=== PATIENT | male | born 1990 | race African-American/Black ===

== ENCOUNTER 2018-02-23 08:30 | Inpatient (IN) | payer OTHER ==
[~2018-02-23] VITALS: Ht 182.9 cm; Wt 78.7 kg
[2018-02-23 08:30] VITALS: BP 127/68
[~2018-02-23 08:30] MED LIST: ACET-8331 GT; ACET-8386 GT; ASCO500T45 GT; DOCU-299 GT; FAMO-90 GT; LACT1POW GT; LEVE1000 PO; MERO1PDS2 IV; METO25TA GT; MULT5SOL7 GT; ONDA4TAB GT; VANC750S IV; [UNRECOGNIZED DRUG - CODE] PO
--- NOTE | 2018-02-23 08:30 | NUR ---
3744 PT BIBA ALS TO ER BED 10
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
--- NOTE | 2018-02-23 08:51 | NUR ---
RCV'D PT ON MECHANICAL VENTILATION WITH CHARTED SETTINGS. PT IS TRACHED WITH PORTEX 8. NO SOB OR DISTRESS NOTED. CLEAR BILAT BREATH SOUNDS. VENT IS CONNECTED TO RED OUTLET. ALARMS ARE AUDIBLE. WILL CONTINUE TO MONITOR.
[2018-02-23 09:37] LABS: BASOPHILS % (AUTO) 0.2 % (0.0-2.0); EOSINOPHILS % (AUTO) 0.6 % (0.0-4.0); HEMATOCRIT 38.1 % (36-52); HEMOGLOBIN 12.7 g/dL (12.0-18.0); LYMPHOCYTES # (AUTO) 2.8 K/uL (2.0-11.5); LYMPHOCYTES % (AUTO) 35.8 % (20.5-51.1); MEAN CORPUSCULAR HEMOGLOBIN 31 pg (27-31); MEAN CORPUSCULAR HGB CONC 33 g/dL (33-37); MEAN CORPUSCULAR VOLUME 92.4 fL (80-94); MONOCYTES # (AUTO) 0.6 K/uL (0.8-1.0); MONOCYTES % (AUTO) 7.2 % (1.7-9.3); NEUTROPHILS # (AUTO) 4.4 K/uL (1.8-7.7); NEUTROPHILS % (AUTO) 56.2 % (42.2-75.2); PLATELET COUNT (AUTO) 193 K/uL (140-450); RED BLOOD CELL COUNT(AUTO) 4.12 MIL/uL (4.20-6.10); RED CELL DISTRIBUTION WIDTH 15.7 % (11.6-13.7); WHITE BLOOD COUNT (AUTO) 7.9 K/uL (4.8-10.8)
[2018-02-23 09:51] LABS: ANION GAP 10.5 (8-16); CARBON DIOXIDE 27.4 mmol/L (21-32); CREATININE 1.1 mg/dL (0.7-1.3); POTASSIUM 3.9 mmol/L (3.5-5.1)
[2018-02-23] MEDS ORDERED: cefTRIAXone 1,000 MG VIAL ONE (09:51)
[2018-02-23 09:52] LABS: PROTHROMBIN TIME 11.3 secs (10.8-13.4)
[2018-02-23 09:55] LABS: APPEARANCE,URINE CLEAR (CLEAR); BILIRUBIN,URINE NEGATIVE (NEGATIVE); BLOOD, URINE NEGATIVE (NEGATIVE); COLOR,URINE YELLOW (YELLOW); LEUKOCYTE ESTERASE ,URINE 1+ (NEGATIVE); NITRITE, URINE NEGATIVE (NEGATIVE); UGLUCOSE NEGATIVE (NEGATIVE)
[2018-02-23 09:57] LABS: ALBUMIN 4.6 g/dL (3.4-5.0); TOTAL BILIRUBIN 0.3 mg/dL (0.0-1.0)
--- NOTE | 2018-02-23 10:00 | NUR ---
PT STRAIGHT CATH, URINE SAMPLE SEND TO THE LAB, DIP STICK RESULTS GIVEN TO DR CROWLEY, PT IN NO ACUTE DISTRESS AT THIS TIME, ON VENT, VSS, WILL CONTINUE TO MONITOR.
[2018-02-23 10:14] LABS: RBC,URINE NONE SEEN /HPF (0-5)
[2018-02-23] MEDS ORDERED: ONDANSETRON 4 MG/2 ML VIAL IVP PRN (10:35)
[2018-02-23] MEDS ORDERED: HYDROcodone/APAP 5/325 MG 1 TAB TAB PO PRN (10:35)
[2018-02-23] MEDS ORDERED: HYDROcodone/APAP 5/325 MG 1 TAB TAB GT PRN (10:35)
[2018-02-23] MEDS ORDERED: LORazepam 2 MG/ML VIAL IVP PRN (10:35)
[2018-02-23] MEDS ORDERED: NON-FORMULARY ITEM (Acetaminophen 650 MG) GT SCH (10:35)
--- NOTE | 2018-02-23 12:00 | NUR ---
Patient will be admitted to care of Dr Nelson admited to tele to room 108b. Belongings list completed. Report to JEANA Bryan.
[2018-02-23 12:05] VITALS: BP 122/81
--- NOTE | 2018-02-23 12:05 | NUR ---
RECEIVED PT REPORT FROM ER NURSE AT BEDSIDE. PT IS AWAKE, OX0. HX CVA (TBI) TRACH TO VENT. COMING FROM [facility]. CC: FEVER AND TACHYCARDIA. DX UTI. IV NOTED TO LEFT WRIST 20G. INTACT AND ASYMPTOMATIC. SKIN INTACT, NO ACTIVE WOUND. OLD SCAR AROUND ANUS AND ON LEFT KNEE. VENT SETTING: FIO2 28, VT450, PEEP6, RR12. O2 SAT 98%. VITALS TAKEN, MRSA SCREENING DONE. BED IN LOWEST POSITION. FALLS PRECAUTIONS IN PLACE. CALL LIGHT WITHIN REACH. Addendum: 02/23/18 at 1813 by Irvin Austin RN BUE, BLE RIGID. ABNORMAL FLEXION BUE.
[2018-02-23] MEDS ORDERED: LACTOBACILLUS ACIDOPHILUS GT SCH (13:00)
[2018-02-23] MEDS: ASCORBIC ACID 500 MG/5 ML ORASYR GT SCH ×3 (13:10→20:25)
--- NOTE | 2018-02-23 13:10 | NUR ---
G TUBE RESIDUAL 0ML. SCHEDULED MED GIVEN VIA G TUBE BY GRAVITY, FLUSHED WITH 30ML H2O. G TUBE IS PATENT.
[2018-02-23] MEDS: ALBUTEROL 0.083% 2.5 MG/3 ML NEBU IH SCH ×2 (13:26→19:09)
--- NOTE | 2018-02-23 13:38 | NUR ---
PT ON AC 12, VT 450, PEEP 6 AND FIO2 28%. VENT CHECK COMPLETED PT NOT IN ANY DISTRESS AT THIS TIME. PT SUCTIONED OBTAINED SMALL AMOUNT OF THICK WHITE SECRETIONS, AIRWAY IS PATENT AND TRACH IS SECURE.
--- NOTE | 2018-02-23 14:20 | NUR ---
CALLED JUANITA CASTILLO FOR PNA VAC STATUS AND G TUBE FEEDING SETTING. CALLED PT'S FATHER, MADE HIM AWARE PT IS ADMITTED TO THE HOSP.
--- NOTE | 2018-02-23 14:40 | NUR ---
CALLED DR BORGES. YEIMI TO RESUME PREVIOUS G TUBE FEEDING WHICH PT HAD IN HIS [facility]. ORDERED NS 100ML PER HOUR.
[2018-02-23] MEDS: NACL 0.9% 1,000 ML IV SCH ×2 (14:50→20:24)
--- NOTE | 2018-02-23 15:00 | NUR ---
SPOKE WITH CENTRIFUGAL WAX MOLDER ABOUT CONVERTING OSMOLITE 1.2 TO 1.5
--- NOTE | 2018-02-23 15:16 | NUR ---
DISCUSSED RECOMMENDATIONS WITH NURSE TO CHANGE TF ORDER TO OSMOLITE 1.5 @ 55ML/H WITH 160 ML H2O FLUSH Q6H. THIS WILL PROVIDE 1980 KCAL, 83 GM PRO, AND 1965 ML FLUID. [address]
[2018-02-23 16:00] VITALS: BP 120/54
--- NOTE | 2018-02-23 17:00 | NUR ---
SMALL BMX1, GREENISH BLACK PASTE LIKE STOOL. PT WAS CLEANED AND REPOSITIONED.
--- NOTE | 2018-02-23 17:09 | NUR ---
VENT ALARMS REMAIN ON AND FUNCTIONING. PT IS NOT SOB AND NOT IN RESPIRATORY DISTRESS AT THIS TIME. TRACH REMAINS SECURE WITH PATENT AIRWAY.
--- NOTE | 2018-02-23 17:35 | NUR ---
CALLED [facility] FOR OSMOLITE FORMULA.
--- NOTE | 2018-02-23 18:05 | NUR ---
CALLED [employer] FOR OSMOLITE, WAITING FOR DELIVERY.
--- NOTE | 2018-02-23 18:30 | NUR ---
G TUBE RESIDUAL 0ML. TUBE FEEDING STARTED. OSMOLITE 1.5, 55ML/HR, H2O FLUSH 200ML Q6H.
[2018-02-23 19:12] VITALS: BP 107/63
--- NOTE | 2018-02-23 19:20 | NUR ---
ENDORSE PT TO MASTER BARBER. PT IN STALE CONDITION.
--- NOTE | 2018-02-23 19:21 | NUR ---
PATIENT REPORT RECEIVED FROM MORNING NURSE AT BEDSIDE. PT IS AWAKE, NONVERBAL. TRACH TO VENT. NO S/SX OF DISTRESS NOTED. FLACC 0. IV SITE NOTED ON LEFT WRIST, IV FLUID INFUSING WELL. GTUBE IN PLACE WITH GTUBE FEEDING CURRENTLY RUNNING AT 55ML/HR. SKIN IS INTACT. SAFETY AND SEIZURE PRECAUTIONS IN PLACE. BED IN LOWEST POSITION, SIDE RAILS UP AND CALL LIGHT WITHIN REACH. WILL CONTINUE TO MONITOR
--- NOTE | 2018-02-23 19:35 | NUR ---
PATIENT'S FAMILY MEMBER IS AT BEDSIDE. UPDATED HER ON PATIENT'S CONDITION.
[2018-02-23] MEDS: FAMOTIDINE 20 MG TAB GT SCH (20:25)
[2018-02-23] MEDS: levETIRAcetam 100 MG/ML ORASYR GT SCH (20:25)
--- NOTE | 2018-02-23 20:30 | NUR ---
GTUBE RESIDUAL CHECKED. NO RESIDUAL NOTED. MEDICATION ADMINISTERED ORDERED. PATIENT TOLERATED WELL. WILL CONTINUE TO MONITOR
[2018-02-23] MEDS: DOCUSATE 100 MG/10 ML UDC GT SCH (20:43)
--- NOTE | 2018-02-23 20:44 | NUR ---
HELD COLACE. PER MORNING NURSE. PATIENT HAD A BOWEL MOVEMENT WHEN HE WAS TRANSFERRED TO THE FLOOR AND ANOTHER TIME DURING THE SHIFT
[2018-02-23 20:49] VITALS: BP 107/63
--- NOTE | 2018-02-23 21:00 | NUR ---
PATIENT HAD A BOWEL MOVEMENT AND VOIDED IN BED. PERICARE DONE. CHUCKS CHANGED. PATIENT REPOSITIONED FOR COMFORT. PATIENT TOLERATED WELL. WILL CONTINUE TO MONITOR
--- NOTE | 2018-02-23 22:40 | NUR ---
PATIENT SEEN BY DR. BORGES. UPDATED HIM ON PATIENT'S CONDITION
[2018-02-24] VITALS: BP 107/44
[2018-02-24] MEDS: ALBUTEROL 0.083% 2.5 MG/3 ML NEBU IH SCH ×4 (01:17→19:11)
--- NOTE | 2018-02-24 02:00 | NUR ---
PATIENT HAD A BOWEL MOVEMENT AND VOIDED IN BED. PERICARE DONE. CHUCKS CHANGED. PATIENT REPOSITIONED FOR COMFORT. PATIENT TOLERATED WELL. WILL CONTINUE TO MONITOR
[2018-02-24] MEDS: NACL 0.9% 1,000 ML IV SCH ×2 (03:33→20:19)
[2018-02-24 04:00] VITALS: BP 100/56
--- NOTE | 2018-02-24 04:00 | NUR ---
PATIENT REPOSITIONED FOR COMFORT. PATIENT TOLERATED WELL. WILL CONTINUE TO MONITOR
[2018-02-24] MEDS: ACETAMINOPHEN 650 MG/20.3 ML UDC GT PRN ×2 (04:29→21:20)
--- NOTE | 2018-02-24 06:38 | NUR ---
PATIENT HAS BEEN SCREENED AND CATEGORIZED HIGH NUTRITION RISK. PATIENT WILL BE SEEN WITHIN 1-2 DAYS OF ADMISSION. 02/24/18-02/25/18 AUGIE RHODES MS, RDN
--- NOTE | 2018-02-24 07:15 | NUR ---
PATIENT REPORT GIVEN TO MORNING NURSE AT BEDSIDE FOR CONTINUITY OF CARE. PATIENT IS IN STABLE CONDITION
--- NOTE | 2018-02-24 07:16 | NUR ---
RECEIVED REPORT FROM BUILDING RIGGER RN. PATIENT IS NONVERBAL, HAS EYES OPEN WITH NO SIGNS AND SYMPTOMS OF ACUTE DISTRESS NOTED AT THIS TIME. HAS IV TO THE LEFT WRIST 20G, INFUSING NS AT 100 ML/HR. SITE IS CLEAN, DRY, PATENT AND INTACT. PATIENT IS TRACH TO VENT. HAS G-TUBE WITH FEEDING RUNNING AT 55 ML/HR. BED IN LOWEST POSITION, SIDE RAILS UP X2 WITH SEIZURE PRECAUTION, CALL LIGHT WITHIN REACH. WILL CONTINUE TO MONITOR.
--- NOTE | 2018-02-24 07:34 | NUR ---
RECEIVED TRACH PT WITH A PORTEX 8 TRACH ON VENT. SETTINGS AC 12, VT 450, PEEP 6 AND FIO2 28%. PT SUCTIONED OBTAINED SCANT AMOUNT OF THICK WHITE SECRETIONS, AIRWAY IS PATENT AND TRACH IS SECURE. PT IS AWAKE BUT NOT ALERT, PT IS NOT SOB AND NOT IN RESPIRATORY DISTRESS. VENT ALARMS ARE ON AND FUNCTIONING. WILL CONTINUE TO MONITOR.
[2018-02-24 07:42] LABS: BASOPHILS % (AUTO) 0.2 % (0.0-2.0); EOSINOPHILS % (AUTO) 0.9 % (0.0-4.0); HEMATOCRIT 35.3 % (36-52); HEMOGLOBIN 11.7 g/dL (12.0-18.0); LYMPHOCYTES # (AUTO) 1.9 K/uL (2.0-11.5); LYMPHOCYTES % (AUTO) 34.5 % (20.5-51.1); MEAN CORPUSCULAR HEMOGLOBIN 31 pg (27-31); MEAN CORPUSCULAR HGB CONC 33 g/dL (33-37); MEAN CORPUSCULAR VOLUME 92.4 fL (80-94); MONOCYTES # (AUTO) 0.6 K/uL (0.8-1.0); MONOCYTES % (AUTO) 10.4 % (1.7-9.3); PLATELET COUNT (AUTO) 173 K/uL (140-450); RED BLOOD CELL COUNT(AUTO) 3.82 MIL/uL (4.20-6.10); WHITE BLOOD COUNT (AUTO) 5.5 K/uL (4.8-10.8)
[2018-02-24 08:00] VITALS: BP 109/65
[2018-02-24 08:09] LABS: ALBUMIN 4.1 g/dL (3.4-5.0); ANION GAP 12.2 (8-16); CARBON DIOXIDE 27.7 mmol/L (21-32); CREATININE 1.1 mg/dL (0.7-1.3); POTASSIUM 3.9 mmol/L (3.5-5.1); TOTAL BILIRUBIN 0.2 mg/dL (0.0-1.0)
[2018-02-24] MEDS: DOCUSATE 100 MG/10 ML UDC GT SCH ×2 (09:25→20:13)
[2018-02-24] MEDS: ASCORBIC ACID 500 MG/5 ML ORASYR GT SCH ×4 (09:25→20:13)
[2018-02-24] MEDS: FAMOTIDINE 20 MG TAB GT SCH ×2 (09:26→20:13)
[2018-02-24] MEDS: LACTOBACILLUS RHAMNOSUS GG 1 EACH CAP GT SCH (09:27)
[2018-02-24] MEDS: ENOXAPARIN 40 MG/0.4 ML SYR SUBQ SCH (09:34)
[2018-02-24] MEDS: levETIRAcetam 100 MG/ML ORASYR GT SCH ×2 (09:35→20:13)
--- NOTE | 2018-02-24 10:29 | NUR ---
02/24/18 RD INITIAL ASSESSMENT COMPLETED PLEASE REFER TO NUTRITION ASSESSMENT UNDER CARE ACTIVITY FOR ESTIMATED NUTRITIONAL NEEDS. RD RECOMMENDATIONS: 1. CONTINUE ON OSMOLITE 1.5 AT 55 ML/HR TOLERATED. 2. RD WILL F/U 2-3 DAYS; HIGH RISK. AUGIE RHODES MS, RDN
--- NOTE | 2018-02-24 11:59 | NUR ---
PT SUCTIONED OBTAINED SMALL AMOUNT OF THICK WHITE SECRETIONS, AIRWAY IS PATENT AND TRACH REMAINS SECURE. WILL CONTINUE TO MONITOR.
[2018-02-24 12:00] VITALS: BP 152/58
[2018-02-24] MEDS ORDERED: HYDRAGUARD CREAM TP ONE (15:05)
--- NOTE | 2018-02-24 15:40 | NUR ---
CONDOM CATH HAS BEEN APPLIED TO PATIENT. HE TOLERATED WELL.
[2018-02-24] MEDS ORDERED: VANCOMYCIN PER PHARMACY MC PRN (15:45)
[2018-02-24 16:00] VITALS: BP 102/53
--- NOTE | 2018-02-24 16:43 | NUR ---
PT ASLEEP AT THIS TIME. PT NOT SOB AND NOT IN RESPIRATORY DISTRESS. SUCTION NOT INDICATED AT THIS TIME. TRACH REMAINS SECURE WITH A PATENT AIRWAY. VENT ALARMS REMAIN ON AND FUNCTIONING.
[2018-02-24] MEDS: PIPER/TAZO 3.375GM/D5W PREMIX 50 ML IV SCH ×2 (17:12→23:54)
[2018-02-24] MEDS: VANCOMYCIN 1GM/DEXT 5% PREMIX 200 ML IV SCH (18:07)
--- NOTE | 2018-02-24 19:20 | NUR ---
ENDORSED PATIENT TO COMPLEX CASE MANAGER RN FOR CONTINUITY OF CARE. PATIENT IN STABLE CONDITION.
--- NOTE | 2018-02-24 19:30 | NUR ---
RECEIVED PT AWAKE, APHASIC, WITH TRACH TO VENT AT 28% FI02, SAT-96% ON CONTINUOUS PULSE OX, VITAL SIGNS STABLE, IVF INFUSING WELL VIA LEFT AC, G-TUBE FEEDING INFUSING WELL AT 55ML/H, HOB ELEVATED AT ALL TIMES, THEA ARMS CONTRACTED, CONDOM CATH IN PLACE DRAINING CLEAR YELLOW OUTPUT, MAINTAIN ON SEIZURE PRECAUTION WITH SIDE RAILS UP AND PADDED, SCD'S IN PLACE, WILL REPOSITION Q2H AND OFFLOAD PRESSURE AREAS, CALL LIGHT WITHIN REACH.
[2018-02-24 20:00] VITALS: BP 124/78
--- NOTE | 2018-02-24 20:20 | NUR ---
40ML G-TUBE RESIDUAL NOTED, DUE MEDS ADMINISTERED VIA G-TUBE AFTER PLACEMENT VERIFICATION, CONTINUE HOB ELEVATED, SUCTION SECRETION PRN, SCANT SECRETION NOTED, MONITORED CLOSELY.
--- NOTE | 2018-02-24 22:00 | NUR ---
PT HAD LOOSE MODERATE GREENISH PRETTY STOOL, SEEN CONDOM CATH DISLODGE, PERINEAL CARE DONE, NEW CONDOM CATH APPLIED, REPOSITIONED AND OFFLOAD PRESSURE AREAS, NEEDS ATTENDED.
--- NOTE | 2018-02-24 23:30 | NUR ---
PT SEEN WITH EYES OPEN, VITAL SIGNS STABLE, TEMP-98.9, FLACC-0, NO SOB NOTED, CONTINUE TO MONITOR CLOSELY.
[2018-02-25] VITALS: BP 118/61
[2018-02-25] MEDS: ALBUTEROL 0.083% 2.5 MG/3 ML NEBU IH SCH ×4 (01:44→19:12)
[2018-02-25] MEDS: NACL 0.9% 1,000 ML IV SCH ×3 (02:47→21:32)
--- NOTE | 2018-02-25 03:40 | NUR ---
PT SLEEPING, OPEN EYES TO TOUCH, VITAL SIGNS STABLE, FLACC-0, IVF INFUSING WELL, REPOSITIONED AND OFFLOAD PRESSURE AREAS, MONITORED CLOSELY.
[2018-02-25 04:00] VITALS: BP 109/63
[2018-02-25] MEDS: PIPER/TAZO 3.375GM/D5W PREMIX 50 ML IV SCH ×3 (05:05→17:28)
[2018-02-25] MEDS: VANCOMYCIN 1GM/DEXT 5% PREMIX 200 ML IV SCH ×2 (05:29→18:29)
--- NOTE | 2018-02-25 05:30 | NUR ---
20ML G-TUBE RESIDUAL NOTED, PT HAD SMALL LOOSE BM, PERINEAL CARE DONE, CONDOM CATH INTACT WITH 1500 TOTAL URINE OUTPUT THE WHOLE SHIFT, NO SEIZURE EPISODE NOTED THE WHOLE SHIFT, IV ANTIBIOTIC INFUSING, MONITORED CLOSELY.
[2018-02-25 06:33] LABS: BASOPHILS % (AUTO) 0.3 % (0.0-2.0); EOSINOPHILS # (AUTO) 0.1 K/uL (0-0.4); EOSINOPHILS % (AUTO) 1.7 % (0.0-4.0); HEMATOCRIT 35.1 % (36-52); HEMOGLOBIN 11.7 g/dL (12.0-18.0); LYMPHOCYTES # (AUTO) 1.6 K/uL (2.0-11.5); LYMPHOCYTES % (AUTO) 36.3 % (20.5-51.1); MEAN CORPUSCULAR HEMOGLOBIN 31 pg (27-31); MEAN CORPUSCULAR HGB CONC 33 g/dL (33-37); MONOCYTES # (AUTO) 0.5 K/uL (0.8-1.0); MONOCYTES % (AUTO) 11.8 % (1.7-9.3); NEUTROPHILS # (AUTO) 2.3 K/uL (1.8-7.7); NEUTROPHILS % (AUTO) 49.9 % (42.2-75.2); PLATELET COUNT (AUTO) 160 K/uL (140-450); RED BLOOD CELL COUNT(AUTO) 3.77 MIL/uL (4.20-6.10); RED CELL DISTRIBUTION WIDTH 15.9 % (11.6-13.7); WHITE BLOOD COUNT (AUTO) 4.5 K/uL (4.8-10.8)
--- NOTE | 2018-02-25 07:15 | NUR ---
PT AWAKE, NO SIGNS OF DISTRESS NOTED, BEDSIDE REPORT GIVEN TO RN LENO FOR CONTINUITY OF CARE.
--- NOTE | 2018-02-25 07:16 | NUR ---
RECEIVED BEDSIDE REPORT FROM ABSORPTION AND ADSORPTION ENGINEER NURSE. PATIENT IS AWAKE, ALERT AND ORIENTEDX1. PATIENT IS NONVERBAL. TRACH TO VENT. NO SIGNS OF DISTRESS. FIO2 AT 28%, VT 450ML, RATE 12, PEEP 6 AND FLOW 40. PATIENT IS INCONTINENT. CONDOM CATH NOT IN PLACE. PROFESSOR LINA AND STUDENT REAGAN TO PLACE A NEW ONE. G TUBE IN PLACE. FEEDING AT 55ML/HR OF OSMOLITE AND 200ML WATER FLUSH Q6HRS. CLEAN, DRY AND INTACT. PATIENT IS BEDBOUND, CONTRACTED. PATIENT HAD TWO BMS LAST NIGHT. TELE MONITOR IN PLACE. SCDS IN PLACE. SEIZURE PRECAUTIONS AND FALL RISK IN PLACE. L AC 22G INFUSING NS AT 100. CLEAN, DRY AND INTACT. CONTACT PRECAUTIONS FOR HX OF MDRO OF URINE. BED IN LOW POSITION. PATIENT CLOSE TO NURSING STATION. WILL CONTINUE TO MONITOR THE PATIENT.
--- NOTE | 2018-02-25 07:45 | NUR ---
PROFESSOR MILLS AND STUDENT NURSE, REAGAN PLACED A LARGE CONDOM CATH ON PATIENT.
[2018-02-25 08:00] VITALS: BP 123/70
--- NOTE | 2018-02-25 08:05 | NUR ---
RECEIVED ON A [employer] R860 VENTILATOR PLUGGED INTO RED OUTLET TOLERATING WELL WITHOUT INCIDENT TO A PORTEX DCT #8 AIRWAY SECURED WITH A FELECIA TRACH TIE CUFF PRESSURE CHECKED NOTED AMBU BAG AT BEDSIDE LOC ASLEEP RESTING COMFORTABLY BREATH SOUNDS CLEAR BILATERAL WITH GOOD CHEST RISE AIRWAY PATENT
[2018-02-25] MEDS: DOCUSATE 100 MG/10 ML UDC GT SCH ×2 (09:00→21:00)
[2018-02-25] MEDS: HYDRAGUARD CREAM TP SCH (09:14)
[2018-02-25] MEDS: LACTOBACILLUS RHAMNOSUS GG 1 EACH CAP GT SCH (09:14)
[2018-02-25] MEDS: ASCORBIC ACID 500 MG/5 ML ORASYR GT SCH ×4 (09:14→21:30)
[2018-02-25] MEDS: FAMOTIDINE 20 MG TAB GT SCH ×2 (09:14→21:31)
[2018-02-25] MEDS: levETIRAcetam 100 MG/ML ORASYR GT SCH ×2 (09:14→21:30)
[2018-02-25] MEDS: ENOXAPARIN 40 MG/0.4 ML SYR SUBQ SCH (09:15)
--- NOTE | 2018-02-25 09:30 | NUR ---
CHECKED FOR GTUBE PLACEMENT USING SWOOSH. SWOOSH PRESENT. NO RESIDUAL. CRUSHED AND ADMINISTERED MEDS. DID NOT GIVE COLACE BECAUSE PATIENT HAD TWO LOOSE STOOLS LAST NIGHT. PATIENT TOLERATED WELL. FLUSHED TUBED. PATIENT TOLERATED WELL. ADMINISTERED TUBE FEEDING. OSMOLITE AT 55ML/HR WITH 200 H20 FLUSH Q6HRS. PATIENT TOLERATING WELL. WILL CONTINUE TO MONITOR THE PATIENT. BED IN LOW POSITION. WILL CONTINUE TO MONITOR THE PATIENT
--- NOTE | 2018-02-25 09:33 | NUR ---
AWAKE STABLE GOOD CHEST RISE BREATH SOUNDS RHONCHI BILATERAL DEEP TRACEAL SUCTION FOR MODERATE THICK YELLOW SECRETIONS AIRWAY PATENT Addendum: 02/25/18 at 1054 by Lucian Gomez RT AMBER MCKEON CONTINUOS PULSE OXIMETER AT BEDSIDE ON AND FUNCTIONING WELL LOW SATURATION ALARM SET AT 94%
--- NOTE | 2018-02-25 10:10 | NUR ---
NO CONDOM CATH AT THIS TIME. ATTEMPTED 3 CONDOM CATHS, MED WAS TOO SMALL, AND TWO LARGE BOTH WERE REMOVED IN A FEW MINS OF PLACEMENT. WILL JUST KEEP PATIENT ON CHUCKS AND CHANGE WHEN SOILED. NO CATHETER D/T PATIENT HAVING A UTI. WILL CONTINUE TO MONITOR THE PATIENT.
--- NOTE | 2018-02-25 11:20 | NUR ---
PATIENT HAD A BM. CLEANSED PATIENT W TEA BAG PACKER. APPLIED HYDROGUARD AND APPLIED OPTIFORM AT SACRAL COCCYX AREA. REPOSITIONED PATIENT. PATIENT TOLERATED WELL. GAVE PATIENT A BED BATH W TEA BAG PACKER. CHANGED GOWN AND ELEVATED HOB. SUCTIONED PATIENT X2 D/T INCREASED SECRETIONS. PATIENT TOLERATED WELL. WILL CONTINUE TO MONITOR THE PATIENT.
[2018-02-25 12:00] VITALS: BP 118/69
[2018-02-25] MEDS: CHLORHEXADINE GLUC 2% CLOTH TP SCH (12:26)
[2018-02-25] MEDS: MUPIROCIN 2% OINT 22 GM TUBE TP SCH (12:33)
--- NOTE | 2018-02-25 12:34 | NUR ---
ADMINISTERED MEDS. PATIENT TOLERATED WELL. IV IS CLEAN, DRY AND INTACT. WILL CONTINUE TO MONITOR THE PATIENT
--- NOTE | 2018-02-25 13:11 | NUR ---
CHECKED FOR GTUBE PLACEMENT USING SWOOSH. NO RESIDUAL. ADMINISTERED MEDS. PATIENT TOLERATED WELL. FLUSHED. BED IN LOW POSITION. NO SIGNS OF DISTRESS. WILL CONTINUE TO MONITOR THE PATIENT
--- NOTE | 2018-02-25 13:55 | NUR ---
AWAKE STABLE NO APPARENT PULMONARY DISTRESS NOTED GOOD CHEST RISE AND AERATION THROUGHOUT AIRWAY PATENT
--- NOTE | 2018-02-25 15:00 | NUR ---
PATIENT IS SLEEPING. NO SIGNS OF DISTRESS ON TRACH TO VENT. WILL CONTINUE TO MONITOR THE PATIENT.
--- NOTE | 2018-02-25 15:43 | NUR ---
NO EVIDENCE OF RESPIRATORY DISTRESS NOTED AT THIS TIME GOOD CHEST RISE
[2018-02-25 16:00] VITALS: BP 108/60
--- NOTE | 2018-02-25 16:30 | NUR ---
PATIENT HAD A BM. GREENISH, BROWNISH. CLEANED PATIENT W COUNSELOR/ART THERAPIST. TURNED PATIENT AND SUCTIONED PATIENT D/T INCREASED SECRETIONS. PATIENT TOLERATED WELL. WILL CONTINUE TO MONITOR THE PATIENT.
--- NOTE | 2018-02-25 17:19 | NUR ---
CALLED DR AVILEZ ABOUT URINE CULTURE NEGATIVE AND 1/2 BLOOD CULTURES HAD COAGULASE NEGATIVE STAPH. (SUSPECT CONTAMINATION) AND ALSO MRSA POSITIVE IN NARES. HE SAID AT DISCHARGE CONTINUE ANTIBIOTICS FOR ONE WEEK. CHARGE NURSE KATIE TALKED TO DR BORGSE AND HE SAID OK TO DISCHARGE TOMORROW. WILL CONTINUE TO MONITOR THE PATIENT.
--- NOTE | 2018-02-25 17:35 | NUR ---
NO APPARENT RESPIRATORY DISTRESS NOTED BREATH SOUNDS CLEAR WITH GOOD CHEST RISE AIRWAY PATENT
--- NOTE | 2018-02-25 17:38 | NUR ---
ADMINISTERED MEDS. CHECKED FOR PLACEMENT USING SWOOSH. ADMINISTERED MEDS AND FLUSHED. PATIENT TOLERATED WELL. IV IS CLEAN, DRY AND INTACT. WILL CONTINUE TO MONITOR THE PATIENT.
--- NOTE | 2018-02-25 18:33 | NUR ---
ADMINISTERED MEDS. PATIENT TOLERATED WELL. IV IS CLEAN, DRY AND INTACT. WILL CONTINUE TO MONITOR THE PATIENT. NO SIGNS OF DISTRESS ON TRACH TO VENT.
--- NOTE | 2018-02-25 19:13 | NUR ---
RECEIVED PT ON PORTEX 8 ON VENT SETTINGS: AC/VC 12, 450, 28%, +6. AIRWAYS IS SECURED AND PATENT. AMBUBAG IS AT BEDSIDE AND VENT IS PLUGGED INTO RED OUTLET. ALARMS ARE FUNCTIONING AND AUDIBLE. NO RESPIRATORY DISTRESS NOTED. WILL CONTINUE TO MONITOR.
--- NOTE | 2018-02-25 19:13 | NUR ---
GAVE BEDSIDE REPORT TO PUBLISHING SPECIALIST NURSE. PATIENT ENDORSED IN STABLE CONDITION.
--- NOTE | 2018-02-25 19:20 | NUR ---
RECEIVED REPORT FROM DAY SHIFT AT BEDSIDE, PATIENT RESTING IN BED, NO S/S OF DISTRESS NOTED, TRACH TO VENT, O2SAT 98%, G-TUBE IN PLACE, WITH CONTINUOUS FEEDING AT 55ML/HR. IV PATENT AND INTACT, INFUSING NS AT 100ML/HR. REPOSITIONED PATIENT WITH ANOTHER RN. HEAD OF BED ELEVATED, SAFETY MEASURE ENSURED, WILL CONTINUE TO MONITOR.
[2018-02-25 20:00] VITALS: BP 104/53
--- NOTE | 2018-02-25 21:40 | NUR ---
NO RESIDUAL NOTED, DUE MEDICATION GIVEN, PATIENT TOLERATED WELL. NOTED PATIENT VOIDED, CLEANED AND REPOSITIONED PATIENT WITH ANOTHER RN. HEAD OF BED ELEVATED, CALL LIGHT WITHIN REACH, SAFETY MEASURE ENSURED, WILL CONTINUE TO MONITOR.
--- NOTE | 2018-02-25 23:05 | NUR ---
CHECKED PATIENT DRY AND CLEAN, REPOSITIONED PATIENT WITH ANOTHER RN. HEAD OF BED ELEVATED, SAFETY MEASURE ENSURED, WILL CONTINUE TO MONITOR.
[2018-02-26 00:15] VITALS: BP 100/63
[2018-02-26] MEDS: PIPER/TAZO 3.375GM/D5W PREMIX 50 ML IV SCH ×3 (00:16→12:41)
[2018-02-26] MEDS: ALBUTEROL 0.083% 2.5 MG/3 ML NEBU IH SCH ×3 (01:13→13:02)
--- NOTE | 2018-02-26 02:13 | NUR ---
CHECKED PATIENT DRY AND CLEAN, REPOSITIONED PATIENT WITH ANOTHER RN. HEAD OF BED ELEVATED, SAFETY MEASURE ENSURED, WILL CONTINUE TO MONITOR.
[2018-02-26 04:00] VITALS: BP 110/56
--- NOTE | 2018-02-26 04:40 | NUR ---
MADE LARGE AMOUNT OF LOOSE BOWEL MOVEMENT. CLEANED AND REPOSITIONED PATIENT WITH ANOTHER RN. PATIENT RESTING IN BED, NO S/S OF DISTRESS NOTED, RESPIRATION EVEN AND UNLABORED, CALL LIGHT WITHIN REACH, HEAD OF BED ELEVATED, SAFETY MEASURE ENSURED, WILL CONTINUE TO MONITOR.
[2018-02-26 05:29] LABS: BASOPHILS % (AUTO) 0.4 % (0.0-2.0); EOSINOPHILS # (AUTO) 0.2 K/uL (0-0.4); EOSINOPHILS % (AUTO) 3.8 % (0.0-4.0); HEMATOCRIT 35.1 % (36-52); HEMOGLOBIN 11.5 g/dL (12.0-18.0); LYMPHOCYTES # (AUTO) 1.7 K/uL (2.0-11.5); LYMPHOCYTES % (AUTO) 33.4 % (20.5-51.1); MEAN CORPUSCULAR HEMOGLOBIN 30 pg (27-31); MEAN CORPUSCULAR HGB CONC 33 g/dL (33-37); MEAN CORPUSCULAR VOLUME 92.5 fL (80-94); MONOCYTES # (AUTO) 0.4 K/uL (0.8-1.0); MONOCYTES % (AUTO) 8.7 % (1.7-9.3); NEUTROPHILS # (AUTO) 2.7 K/uL (1.8-7.7); NEUTROPHILS % (AUTO) 53.7 % (42.2-75.2); PLATELET COUNT (AUTO) 164 K/uL (140-450); RED BLOOD CELL COUNT(AUTO) 3.79 MIL/uL (4.20-6.10); RED CELL DISTRIBUTION WIDTH 16.1 % (11.6-13.7); WHITE BLOOD COUNT (AUTO) 5.1 K/uL (4.8-10.8)
[2018-02-26] MEDS: VANCOMYCIN 1GM/DEXT 5% PREMIX 200 ML IV SCH (05:34)
--- NOTE | 2018-02-26 06:15 | NUR ---
NO CHANGE IN CONDITION, PATIENT RESTING IN BED, RESPIRATION EVEN AND UNLABORED, CLEAN AND DRY. HEAD OF BED ELEVATED, CALL LIGHT WITHIN REACH, SAFETY ENSURED, WILL CONTINUE TO MONITOR.
--- NOTE | 2018-02-26 07:12 | NUR ---
ENDORSED PLAN OF CARE TO DAY SHIFT RN, PATIENT IS IN STABLE CONDITION.
--- NOTE | 2018-02-26 07:13 | NUR ---
RECEIVED REPORT FROM MANUFACTURING AREA MANAGER NURSE AT BEDSIDE FOR CONTINUITY OF CARE, PATIENT RESTING IN BED, ALERT, NO S/S OF DISTRESS NOTED, RESPIRATIONS EVEN AND UNLABORED. TRACH TO VENT, VENT SETTINGS: AC 12, VT 450, PEEP 6, FIO2 26%, O2 SATURATION AT 99%, G-TUBE IN PLACE, WITH CONTINUOUS FEEDING AT 55 ML/HR. IV SITE PATENT AND INTACT, INFUSING NS AT 100ML/HR. UPDATED BOARD. SAFETY, SEIZURE, AND ISOLATION PRECAUTION IN PLACE D/T POSITIVE MRSA IN NARES, BED IN LOWEST POSITION, BED ALARM ON, CALL LIGHT WITHIN REACH, WILL CONTINUE TO MONITOR PATIENT. Addendum: 02/26/18 at 0811 by Yamil Lambert RN FIO2 28%
--- NOTE | 2018-02-26 07:22 | NUR ---
RECEIVED TRACH PT WITH A PORTEX 8 TRACH ON VENT. SETTINGS AC 12, VT 450, PEEP 6 AND FIO2 28%. PT SUCTIONED OBTAINED SCANT AMOUNT OF THICK WHITE/CLEAR SECRETIONS, AIRWAY IS PATENT AND TRACH IS SECURE. PT IS NOT SOB AND NOT IN RESPIRATORY DISTRESS. VENT ALARMS ARE ON AND FUNCTIONING. WILL CONTINUE TO MONITOR.
[2018-02-26 08:00] VITALS: BP 116/59
[2018-02-26] MEDS: NACL 0.9% 1,000 ML IV SCH (08:32)
[2018-02-26] MEDS: DOCUSATE 100 MG/10 ML UDC GT SCH (08:42)
[2018-02-26] MEDS: levETIRAcetam 100 MG/ML ORASYR GT SCH (08:59)
[2018-02-26] MEDS: FAMOTIDINE 20 MG TAB GT SCH (08:59)
[2018-02-26] MEDS: ASCORBIC ACID 500 MG/5 ML ORASYR GT SCH ×2 (08:59→12:41)
[2018-02-26] MEDS: LACTOBACILLUS RHAMNOSUS GG 1 EACH CAP GT SCH (08:59)
[2018-02-26] MEDS: ENOXAPARIN 40 MG/0.4 ML SYR SUBQ SCH (09:05)
--- NOTE | 2018-02-26 09:05 | NUR ---
GTUBE AUSCULTATED FOR PLACEMENT, GTUBE IN PLACE, 0 ML OF RESIDUAL NOTED. ORDERED MEDICATIONS GIVEN WITH 100 ML OF WATER. PATIENT TOLERATED IT WELL. NO SIGNS OF DISTRESS OR SOB NOTED ON TRACH TO VENT. PATIENT O2 SATURATION AT 100%. PATIENT SUCTIONED, MINIMAL WHITE THICK SECRETIONS NOTED. PATIENT TOLERATED IT WELL. NO SIGNS OF DISTRESS OR SOB NOTED, RESPIRATIONS EVEN AND UNLABORED. ORAL CARE GIVEN. SAFETY, ISOLATION, AND SEIZURE PRECAUTION IN PLACE, CALL LIGHT WITHIN REACH, WILL CONTINUE TO MONITOR PATIENT.
--- NOTE | 2018-02-26 09:20 | NUR ---
CALLED PHARMACY, INFORMED PHARMACIST ALEXANDRA OF [facility]. HE SAID HE WILL LOOK AT POLICY AND READJUST 1800 DOSE IF NEEDED. RN VERBALIZED UNDERSTANDING.
[2018-02-26] MEDS ORDERED: ZOS3.375PM IV (10:11)
[2018-02-26] MEDS: HYDRAGUARD CREAM TP SCH (10:25)
--- NOTE | 2018-02-26 10:25 | NUR ---
DR BORGES IN TO SEE THE PATIENT. PATIENT WILL BE DISCHARGED TODAY. PATIENT VOIDED, PATIENT GIVEN SPONGE BATH BY CAGE OPERATOR, PATIENT CHANGED INTO NEW GOWNS, LINENS CHANGED, PATIENT REPOSITIONED FOR COMFORT AND TO OFFLOAD PRESSURE ULCERS. HYDRAGUARD APPLIED TO SACRAL REDNESS. NEW DRESSING FOR GTUBE SITE CHANGED. PATIENT TOLERATED IT WELL. SAFETY, SEIZURE, AND ISOLATION PRECAUTIONS IN PLACE, BED IN LOWEST POSITION, ALL ALARMS CHECKED, CALL LIGHT WITHIN REACH, WILL CONTINUE TO MONITOR PATIENT.
[2018-02-26] MEDS: MUPIROCIN 2% OINT 22 GM TUBE TP SCH (11:05)
--- NOTE | 2018-02-26 11:05 | NUR ---
ORDERED MEDICATIONS GIVEN. PATIENT TOLERATED IT WELL. NO SIGNS OF DISTRESS NOTED. WILL CONTINUE TO MONITOR PATIENT.
[2018-02-26] MEDS: CHLORHEXADINE GLUC 2% CLOTH TP SCH (11:06)
[2018-02-26 12:00] VITALS: BP 101/74
--- NOTE | 2018-02-26 12:35 | NUR ---
ORDERED MEDICATIONS GIVNE. PATIENT TOLERATED THEM WELL. WILL CONTINUE TO MONITOR.
--- NOTE | 2018-02-26 12:45 | NUR ---
SPOKE TO CLARY FROM [facility] AND FAXED INFORMATION TO HER ABOUT THE PATIENT GOING BACK TO [facility] TODAY.
--- NOTE | 2018-02-26 13:42 | NUR ---
FAXED INITIAL REVIEW TO [facility] [phone] HANS [phone] FROM [facility], THE AUTH FOR TRANSPORT FOR [facility] IS [id number].
--- NOTE | 2018-02-26 15:10 | NUR ---
CALLED [facility] AND SET UP TRANSPORT FOR 3:30 TO 3:45 P.M. [place] AWARE.
--- NOTE | 2018-02-26 15:30 | NUR ---
CALLED [facility] AND GAVE REPORT TO NAWAF HILLS, PATIENT WILL BE GOING TO ROOM 121A AND WILL BE UNDER THE CARE OF DR. HOPKINS. ALSO CALLED PATIENT'S FATHER ANAND MATHEWS, NO ANSWER, NO VOICEMAIL BOX AVAILABLE. THEN CALLED PATIENT'S STEPMOTHER JENNYFER MATHEWS AND INFORMED HER OF PATIENT'S DISCHARGE AND TRANSFER BACK TO [facility]. SHE VERBALIZED UNDERSTANDING.
--- NOTE | 2018-02-26 15:35 | NUR ---
[facility] STAFF HERE, ID BANDS CUT, TELE MONITOR REMOVED, GTUBE CLAMPED. PATIENT TOLERATED IT WELL. WILL ASSIST WITH THE DISCHARGE TRANSFER.
--- NOTE | 2018-02-26 15:50 | NUR ---
PATIENT WHEELED OFF FLOOR VIA GURNEY BY [facility] STAFF. PATIENT TOOK ALL HIS BELONGINGS WITH HIM. PATIENT IN STABLE CONDITION.
== END 2018-02-26 15:45 | DRG 720 ==
LOC: MED 08:30 → MTU 10:55
PROVIDERS: ADMIT Hospitalist; ATTEND Hospitalist
PROC: 5A1945Z Respiratory Ventilation, 24-96 Consecutive Hours (ICD-10-PCS; principal; 2018-02-23)
DX: A41.9 Sepsis, unspecified organism (principal); Z99.11 Dependence on respirator [ventilator] status; J96.10 Chronic respiratory failure, unspecified whether with hypoxia or hypercapnia; Z93.0 Tracheostomy status; R53.2 Functional quadriplegia; J45.909 Unspecified asthma, uncomplicated; K21.9 Gastro-esophageal reflux disease without esophagitis; N39.0 Urinary tract infection, site not specified; I10 Essential (primary) hypertension; F07.81 Postconcussional syndrome; G40.909 Epilepsy, unspecified, not intractable, without status epilepticus; J98.11 Atelectasis; Z86.73 Personal history of transient ischemic attack (TIA), and cerebral infarction without residual deficits; Z87.820 Personal history of traumatic brain injury; Z93.1 Gastrostomy status; Z98.2 Presence of cerebrospinal fluid drainage device; Z79.899 Other long term (current) drug therapy
CPT/HCPCS: 36415; 71045; 80053; 80202; 81001; 82550; 82553; 83605; 83880; 84484; 85025; 85610; 85730; 87040; 87081; 87086; 93005; 94002; 94003; 94640; 96365; 99285; C1758; J0696; J1650; J2543; J3370; J7030; J7060; J7613; Q0092